=== PATIENT | male | born 1950 ===

== ENCOUNTER → 2020-09-16 | Outpatient (CLI) | payer MEDICARE, OTHER ==
[~2020-09-16] MED LIST: B CO1TAB14 PO; EMPA25TA PO; GABA300C PO; GLIP-142 PO; HYDR1TAB53 PO; LISI40TA9 PO; LOVA20TA2 PO; METF1000 PO; METH-640 PO; METH500C3 PO; PIOG45TA63 PO; prevagen PO
== END | disposition home or self-care (01) ==
LOC: STAR 10:49
PROVIDERS: ATTEND Neurological Surgery
DX: Z01.812 Encounter for preprocedural laboratory examination (principal); Z20.822 Contact with and (suspected) exposure to COVID-19; Z01.811 Encounter for preprocedural respiratory examination; Z01.810 Encounter for preprocedural cardiovascular examination; R94.31 Abnormal electrocardiogram [ECG] [EKG]; M48.061 Spinal stenosis, lumbar region without neurogenic claudication; M54.16 Radiculopathy, lumbar region; M47.896 Other spondylosis, lumbar region; R79.1 Abnormal coagulation profile; R82.90 Unspecified abnormal findings in urine; M47.814 Spondylosis without myelopathy or radiculopathy, thoracic region
CPT/HCPCS: 71046; U0003